=== PATIENT | female | born 1990 | race African-American/Black ===

== ENCOUNTER 2019-11-07 20:35 | Emergency (ER) | payer OTHER ==
[~2019-11-07] VITALS: Ht 160 cm; Wt 58.0 kg
[2019-11-07 20:49] VITALS: BP 124/84
[2019-11-07] MEDS ORDERED: KETOROLAC 30 MG/ML VIAL. IM ONE (21:30)
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
--- NOTE | 2019-11-07 22:19 | RAD ---
CT Head W/O Contrast: History: Reason: headache, neck pain / Comparison: none Axial images were obtained without contrast. The combs and white matter appears normal and symmetrical for the patients age. There is no mass effect, extraaxial fluid collections or hydrocephalus. There is no gross bleed. There is no focal loss of combs-white matter distinction to suggest acute ischemia, i.e. stroke. Impression: No acute findings. End impression CT C-Spine without contrast: Clinical History: Reason: headache, neck pain Technique: Axial helical images of the cervical spine were obtained without contrast, axial coronal and sagittal reconstruction was performed. Findings: There is no loss of vertebral body stature. There is no prevertebral soft tissue swelling. The vertebral bodies are well aligned. The C1-C2 relationship is normal. 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 Impression: No acute findings. Clinical correlation suggested. PQRS Compliance Statement: One or more of the following individualized dose reduction techniques were utilized for this examination: 1. Automated exposure control 2. Adjustment of the mA and/or kV according to patient size 3. Use of iterative reconstruction technique Electronically signed by: Rock Martinez III, MD (11/07/2019 10:17 PM) [facility]
[2019-11-07] MEDS ORDERED: ORPH100T PO (22:46)
[2019-11-07] MEDS ORDERED: NAPR-695 PO (22:46)
--- NOTE | 2019-11-07 22:52 | RAD ---
Three view lumbosacral spine History: Pain AP, coned-down lateral and lateral views of the lumbosacral spine were obtained. The vertebral bodies are aligned. There is no loss of vertebral body stature. Intervertebral disc heights are preserved. Impression: No acute findings. End Impression Electronically signed by: Rock Martinez III, MD (11/07/2019 10:49 PM) [facility]
== END 2019-11-07 23:08 | disposition home or self-care (01) ==
LOC: ER 20:35
DX: S16.1XXA Strain of muscle, fascia and tendon at neck level, initial encounter (principal); S39.012A Strain of muscle, fascia and tendon of lower back, initial encounter; R51 Headache; F17.200 Nicotine dependence, unspecified, uncomplicated; F12.90 Cannabis use, unspecified, uncomplicated; V89.2XXA Person injured in unspecified motor-vehicle accident, traffic, initial encounter; Y93.89 Activity, other specified; Y92.89 Other specified places as the place of occurrence of the external cause; Y99.8 Other external cause status
CPT/HCPCS: 70450; 72100; 72125; 81025; 99285